=== PATIENT | female | born 1975 | race American Indian/Alaskan Native ===

== ENCOUNTER 2018-06-18 23:15 | Emergency (ER) | payer MEDICAID ==
[2018-06-18 23:28] VITALS: BP 149/76
[2018-06-19] MEDS ORDERED: NORCO 5/325 PO STA (02:10)
--- NOTE | 2018-06-19 02:12 | Emergency Department Report ---
ED ENT HPI - General Chief complaint: Sore Throat Stated complaint: SORE THROAT Time Seen by Provider: 06/19/18 01:57 Source: patient Mode of arrival: Ambulatory Limitations: No Limitations - History of Present Illness MD complaint: sore throat (reports a 3 month history of waxing and waning left tonsillar lymphadenopathy which showed minimal minimal response to a course of still reports 2 and anti-biotics. Reports pain to the lymph node region. Denies fevers, chills, sweats, dysphagia, weight loss, hemoptysis, hematemesis. Pain is not associated with meals, but appears to be worse at the time of sleep. There is tenderness with palpation presents to the emergency department for pain control. Does have a plan to follow up with primary care and other recommended specialist later this week) Location: throat Severity: moderate Quality: dull Improves with: none Worsens with: position, movement - Related Data Previous Rx's Medication Instructions Recorded Last Taken Type Ketorolac [Toradol] 10 mg PO Q6H PRN #14 tablet 06/19/18 Unknown Rx traMADol [Ultram] 50 mg PO Q6HR PRN #14 tablet 06/19/18 Unknown Rx Allergies Allergy/AdvReac Type Severity Reaction Status Date / Time Sulfa (Sulfonamide Allergy Unknown Verified 06/18/18 23:29 Antibiotics) codeine AdvReac Vomiting Verified 08/26/15 09:11 ED Dental HPI - General Chief complaint: Sore Throat Stated complaint: SORE THROAT Time Seen by Provider: 06/19/18 01:57 Source: patient Mode of arrival: Ambulatory Limitations: No Limitations - Related Data Previous Rx's Medication Instructions Recorded Last Taken Type Ketorolac [Toradol] 10 mg PO Q6H PRN #14 tablet 06/19/18 Unknown Rx traMADol [Ultram] 50 mg PO Q6HR PRN #14 tablet 06/19/18 Unknown Rx Allergies Allergy/AdvReac Type Severity Reaction Status Date / Time Sulfa (Sulfonamide Allergy Unknown Verified 06/18/18 23:29 Antibiotics) codeine AdvReac Vomiting Verified 08/26/15 09:11 ED Review of Systems ROS: Stated complaint: SORE THROAT Other details as noted in HPI Constitutional: denies: chills, fever Eyes: denies: eye pain, eye discharge, vision change ENT: throat pain. denies: ear pain Respiratory: denies: cough, shortness of breath, wheezing Cardiovascular: denies: chest pain, palpitations Endocrine: no symptoms reported Gastrointestinal: denies: abdominal pain, nausea, diarrhea Genitourinary: denies: urgency, dysuria, discharge Musculoskeletal: denies: back pain, joint swelling, arthralgia Skin: denies: rash, lesions Neurological: denies: headache, weakness, paresthesias Psychiatric: denies: anxiety, depression Hematological/Lymphatic: denies: easy bleeding, easy bruising ED Past Medical Hx - Past Medical History Previous Medical History?: Yes Additional medical history: HEART MURMUR - Surgical History Past Surgical History?: Yes Additional Surgical History: LEFT KNEE SURGERY - Social History Smoking Status: Current Some Day Smoker Substance Use Type: None - Medications Home Medications: Home Medications Medication Instructions Recorded Confirmed Last Taken Type Ketorolac [Toradol] 10 mg PO Q6H PRN #14 tablet 06/19/18 Unknown Rx traMADol [Ultram] 50 mg PO Q6HR PRN #14 tablet 06/19/18 Unknown Rx ED Physical Exam - General Limitations: No Limitations General appearance: alert, in no apparent distress - Head Head exam: Present: atraumatic, normocephalic - Eye Eye exam: Present: normal appearance Pupils: Present: normal accommodation - ENT ENT exam: Present: mucous membranes moist, other (normal Flushing's and Stensen' s duct. Pharynx is clear. No exudate. No sign of Quinsy. ) - Neck Neck exam: Present: normal inspection, lymphadenopathy (left tonsillar lymphadenopathy tenderness with palpation.) - Respiratory Respiratory exam: Present: normal lung sounds bilaterally. Absent: respiratory distress - Cardiovascular Cardiovascular Exam: Present: regular rate, normal rhythm. Absent: systolic murmur, diastolic murmur, rubs, gallop - GI/Abdominal GI/Abdominal exam: Present: soft, normal bowel sounds - Extremities Exam Extremities exam: Present: normal inspection - Back Exam Back exam: Present: normal inspection. Absent: CVA tenderness (L), muscle spasm , paraspinal tenderness - Neurological Exam Neurological exam: Present: alert, oriented X3, CN II-XII intact. Absent: normal gait - Psychiatric Psychiatric exam: Present: normal affect, normal mood - Skin Skin exam: Present: warm, dry, intact, normal color. Absent: rash ED Course Vital Signs 06/18/18 23:25 Temperature 99.3 F Pulse Rate 77 Respiratory 18 Rate Blood Pressure 149/76 O2 Sat by Pulse 96 Oximetry Critical care attestation.: If time is entered above; I have spent that time in minutes in the direct care of this critically ill patient, excluding procedure time. ED Disposition Clinical Impression: LAD (lymphadenopathy) of left cervical region Disposition: DC-01 TO HOME OR SELFCARE Is pt being admited?: No Does the pt Need Aspirin: No Condition: Stable Instructions: Lymphadenopathy (ED) Prescriptions: Ketorolac [Toradol] 10 mg PO Q6H PRN #14 tablet PRN Reason: Pain traMADol [Ultram] 50 mg PO Q6HR PRN #14 tablet PRN Reason: Pain Referrals: PRIMARY CARE, [Primary Care Provider] - 3-5 Days
== END 2018-06-19 03:05 | disposition home or self-care (01) ==
LOC: ED 23:15
DX: R59.9 Enlarged lymph nodes, unspecified (principal); F17.200 Nicotine dependence, unspecified, uncomplicated; Z88.2 Allergy status to sulfonamides; Z88.5 Allergy status to narcotic agent
CPT/HCPCS: 99282

== ENCOUNTER 2018-09-13 07:16 | Day surgery (SDC) | payer MEDICAID ==
--- NOTE | 2018-09-13 08:47 | Cat Scan Report ---
CT NECK WITH AND WITHOUT CONTRAST: HISTORY: Neck mass, K11.20. TECHNIQUE: Helical CT before and after following IV contrast. Sagittal and coronal reformatted images. FINDINGS: The parotid and submandibular glands are normal. The carotid sheaths are intact. There is no evidence of adenopathy within the neck. The thyroid gland is normal. The glottic structures are normal. The airway is patent. Strap musculature is unremarkable. Hyoid bone and thyroid cartilage are intact. IMPRESSION: Unremarkable CT neck. No suspicious neck mass or lymph node is detected for CT-guided or ultrasound-guided biopsy.
== END 2018-09-13 07:17 | disposition home or self-care (01) ==
LOC: CATHLABREC 07:16 → EDSTATUS 08:30
PROVIDERS: ATTEND Otolaryngology
DX: K11.20 Sialoadenitis, unspecified (principal); Z88.2 Allergy status to sulfonamides; Z88.5 Allergy status to narcotic agent; Z79.899 Other long term (current) drug therapy
CPT/HCPCS: 70492; Q9967

== ENCOUNTER 2019-04-13 03:57 | Emergency (ER) | payer MEDICAID ==
[2019-04-13] MEDS ORDERED: IBUPROFEN PO ONE (04:24)
[2019-04-13 04:47] LABS: HCG Qualitative,Urine Negative (Negative)
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
--- NOTE | 2019-04-13 05:23 | Cat Scan Report ---
CT of the facial bones INDICATION: Mandibular trauma tonight FINDINGS: The frontal, ethmoid, sphenoid and maxillary sinuses are all clear with no fractures or air -fluid levels identified in these areas. Zygomatic arches are intact as well as are the orbital floor s and allen. Artifact is seen from dental fillings but there is no definite fracture of the mandible or alveolar ridge. No hematoma or significant soft tissue swelling. Nasal bone is intact. No abnormal ity seen. IMPRESSION: Negative facial bone CT. No mandibular fractures seen. All CT scans at this location are performed using CT dose reduction for ALARA by means of automated e xposure control Signer Name: Anant Harris MD Signed: 04/13/2019 5:18 AM Workstation Name: [id number]
[2019-04-13 06:06] VITALS: BP 154/88
== END 2019-04-13 05:50 | disposition home or self-care (01) ==
LOC: ED 03:57
DX: S00.83XA Contusion of other part of head, initial encounter (principal); F17.200 Nicotine dependence, unspecified, uncomplicated; F12.10 Cannabis abuse, uncomplicated; Z98.890 Other specified postprocedural states; Z79.899 Other long term (current) drug therapy; Z88.2 Allergy status to sulfonamides; Z88.5 Allergy status to narcotic agent; Y04.8XXA Assault by other bodily force, initial encounter; Y93.89 Activity, other specified; Y92.29 Other specified public building as the place of occurrence of the external cause; Y99.8 Other external cause status
CPT/HCPCS: 70486; 81025; 99284

== ENCOUNTER 2019-08-22 18:21 | Emergency (ER) | payer MEDICAID ==
[2019-08-22 19:12] LABS: Bacteria,Urine 1+ /HPF (Negative); Bilirubin,Urine NEG (Negative); Blood,Urine SM (Negative); Color,Urine Amber (Yellow); Mucus,Urine FEW /HPF
--- NOTE | 2019-08-22 21:05 | Emergency Department Report ---
ED Female HPI - General Chief complaint: Urogenital-Female Stated complaint: UTI Time Seen by Provider: 08/22/19 21:00 Source: patient Mode of arrival: Ambulatory Limitations: No Limitations - History of Present Illness Initial comments: 43 y/o female come in for dysuria and UTI symptoms times 1 week. No fever or chill. Complaint: dysuria Onset/Timin -: week(s) Severity: severe Quality: sharp, burning, stabbing Consistency: constant Worsens with: urination - Related Data Previous Rx's Medication Instructions Recorded Last Taken Type Ketorolac [Toradol] 10 mg PO Q6H PRN #14 tablet 06/19/18 Unknown Rx traMADoL [Ultram] 50 mg PO Q6HR PRN #14 tablet 06/19/18 Unknown Rx Cyclobenzaprine [Flexeril] 10 mg PO TID PRN #15 tablet 04/13/19 Unknown Rx Ibuprofen [Motrin] 800 mg PO Q8HR PRN #20 tablet 04/13/19 Unknown Rx Nitrofurantoin Luce/M-Cryst 100 mg PO Q12HR 10 Days #20 capsule 08/22/19 Unknown Rx [Macrobid CAP] Phenazopyridine [Pyridium] 100 mg PO TID #6 tab 08/22/19 Unknown Rx Allergies Allergy/AdvReac Type Severity Reaction Status Date / Time Sulfa (Sulfonamide Allergy Unknown Verified 08/22/19 18:32 Antibiotics) codeine AdvReac Vomiting Verified 08/22/19 18:32 ED Review of Systems ROS: Stated complaint: UTI Other details as noted in HPI Comment: All other systems reviewed and negative ED Past Medical Hx - Past Medical History Additional medical history: HEART MURMUR - Surgical History Additional Surgical History: LEFT KNEE SURGERY - Social History Smoking Status: Current Every Day Smoker Substance Use Type: Alcohol, Marijuana - Medications Home Medications: Home Medications Medication Instructions Recorded Confirmed Last Taken Type Ketorolac [Toradol] 10 mg PO Q6H PRN #14 tablet 06/19/18 Unknown Rx traMADoL [Ultram] 50 mg PO Q6HR PRN #14 tablet 06/19/18 Unknown Rx Cyclobenzaprine [Flexeril] 10 mg PO TID PRN #15 tablet 04/13/19 Unknown Rx Ibuprofen [Motrin] 800 mg PO Q8HR PRN #20 tablet 08/03/19 Unknown Rx Nitrofurantoin Luce/M-Cryst 100 mg PO Q12HR 10 Days #20 capsule 08/22/19 Unknown Rx [Macrobid CAP] Phenazopyridine [Pyridium] 100 mg PO TID #6 tab 08/22/19 Unknown Rx ED Physical Exam - General Limitations: No Limitations General appearance: alert, in no apparent distress - Head Head exam: Present: atraumatic, normocephalic - Eye Eye exam: Present: normal appearance - ENT ENT exam: Present: mucous membranes moist - Cardiovascular Cardiovascular Exam: Present: regular rate, normal rhythm. Absent: systolic murmur, diastolic murmur, rubs, gallop - Neurological Exam Neurological exam: Present: alert, oriented X3, normal gait - Psychiatric Psychiatric exam: Present: normal affect, normal mood - Skin Skin exam: Present: warm, dry, intact, normal color. Absent: rash ED Medical Decision Making - Medical Decision Making 43 y/o female come in for dysuria and UTI symptoms times 1 week. No fever or chill. Will treat for UTI. Macrobid 100mg bid times 10 days and pyridium 100 mg tid prn Critical care attestation.: If time is entered above; I have spent that time in minutes in the direct care of this critically ill patient, excluding procedure time. ED Disposition Clinical Impression: UTI (urinary tract infection) Disposition: - TO HOME OR SELFCARE Is pt being admited?: No Does the pt Need Aspirin: No Condition: Stable Instructions: Dysuria (ED), Urinary Tract Infection in Women (ED) Prescriptions: Nitrofurantoin Luce/M-Cryst [Macrobid CAP] 100 mg PO Q12HR 10 Days #20 capsule Phenazopyridine [Pyridium] 100 mg PO TID #6 tab Referrals: [facility] [Provider Group] - 3-5 Days
[2019-08-22 21:36] VITALS: BP 142/78
== END 2019-08-22 21:36 | disposition home or self-care (01) ==
LOC: ED 18:21
DX: N39.0 Urinary tract infection, site not specified (principal); F17.200 Nicotine dependence, unspecified, uncomplicated; F12.10 Cannabis abuse, uncomplicated; Z79.899 Other long term (current) drug therapy; Z88.2 Allergy status to sulfonamides; Z88.5 Allergy status to narcotic agent
CPT/HCPCS: 81001

== ENCOUNTER 2020-06-18 14:50 | Emergency (ER) | payer MEDICAID ==
--- NOTE | 2020-06-18 14:59 | Emergency Department Report ---
Blank Doc - Documentation Documentation: 44-year-old female that presents right leg lac. This initial assessment/diagnostic orders/clinical plan/treatment(s) is/are subject to change based on patient's health status, clinical progression and re- assessment by fellow clinical providers in the ED. Further treatment and workup at subsequent clinical providers discretion. Patient/guardians urged not to elope from the ED as their condition may be serious if not clinically assessed and managed. Initial orders include: 1- Patient sent to [facility] for further evaluation and treatment 2- lac to be performing
[2020-06-18] MEDS ORDERED: LIDOCAINE-MPF (1%) 10 MG/1 ML VIAL 5 ML INFILTRATI ONE (15:38)
--- NOTE | 2020-06-18 15:39 | Emergency Department Report ---
- General Chief Complaint: Wound/Laceration Stated Complaint: LEG INJURY Time Seen by Provider: 06/18/20 14:58 Source: patient Mode of arrival: Ambulatory Limitations: No Limitations - History of Present Illness Initial Comments: Patient is a 44-year-old female presents emergency room with complaints of a laceration to the left anterior de la cruz that occurred just prior to arrival. Patient states that she accidentally dropped a glass jar for spaghetti sauce on the ground. She states that it shattered to the ground and on its way down it cut her leg. She denies any sensation of glass being stuck in the leg. She denies the glass being impaled into the leg.she states that it just sliced on the way down. She is ambulatory without difficulty. She denies any pain in the leg just pain where the laceration is. She states that it was pulsating bright red blood. She states her tetanus has been within the last 5 years. She denies any numbness or weakness. She denies any past medical history. She has an allergy to sulfa and codeine. - Related Data Previous Rx's Medication Instructions Recorded Last Taken Type Ketorolac [Toradol] 10 mg PO Q6H PRN #14 tablet 06/19/18 Unknown Rx traMADoL [Ultram] 50 mg PO Q6HR PRN #14 tablet 06/19/18 Unknown Rx Cyclobenzaprine [Flexeril] 10 mg PO TID PRN #15 tablet 04/13/19 Unknown Rx Ibuprofen [Motrin] 800 mg PO Q8HR PRN #20 tablet 04/13/19 Unknown Rx Nitrofurantoin [place]/M-Cryst 100 mg PO Q12HR 10 Days #20 capsule 08/22/19 Unknown Rx [Macrobid CAP] Phenazopyridine [Pyridium] 100 mg PO TID #6 tab 08/22/19 Unknown Rx Allergies Allergy/AdvReac Type Severity Reaction Status Date / Time Sulfa (Sulfonamide Allergy Unknown Verified 08/22/19 18:32 Antibiotics) codeine AdvReac Vomiting Verified 08/22/19 18:32 ED Review of Systems ROS: Stated complaint: LEG INJURY Other details as noted in HPI Comment: All other systems reviewed and negative ED Past Medical Hx - Past Medical History Previous Medical History?: Yes Hx Hypertension: Yes Additional medical history: HEART MURMUR - Surgical History Past Surgical History?: Yes Additional Surgical History: LEFT KNEE SURGERY - Social History Smoking Status: Current Every Day Smoker Substance Use Type: Alcohol, Marijuana - Medications Home Medications: Home Medications Medication Instructions Recorded Confirmed Last Taken Type Ketorolac [Toradol] 10 mg PO Q6H PRN #14 tablet 06/19/18 Unknown Rx traMADoL [Ultram] 50 mg PO Q6HR PRN #14 tablet 06/19/18 Unknown Rx Cyclobenzaprine [Flexeril] 10 mg PO TID PRN #15 tablet 04/13/19 Unknown Rx Ibuprofen [Motrin] 800 mg PO Q8HR PRN #20 tablet 04/13/19 Unknown Rx Nitrofurantoin [place]/M-Cryst 100 mg PO Q12HR 10 Days #20 capsule 08/22/19 Unknown Rx [Macrobid CAP] Phenazopyridine [Pyridium] 100 mg PO TID #6 tab 08/22/19 Unknown Rx ED Physical Exam - General Limitations: No Limitations General appearance: alert, in no apparent distress - Head Head exam: Present: atraumatic, normocephalic - Eye Eye exam: Present: normal appearance - ENT ENT exam: Present: mucous membranes moist - Respiratory Respiratory exam: Absent: respiratory distress, accessory muscle use - Neurological Exam Neurological exam: Present: alert, oriented X3 - Psychiatric Psychiatric exam: Present: normal affect, normal mood - Skin Skin exam: Present: warm, dry, other (1 cm laceration present to the left anterior de la cruz, there is a very small pulsating arterial bleed, no bony ttp of the LLE, FROM of the LLE, neurovascularly intact, no foreign body, no muscle/tendon involvement) ED Course Vital Signs 06/18/20 06/18/20 06/18/20 15:03 17:13 17:15 Temperature 99.3 F Pulse Rate 98 H 88 88 Respiratory 18 18 16 Rate Blood Pressure 241/120 170/86 170/86 [Right] O2 Sat by Pulse 100 100 100 Oximetry - Laceration /Wound Repair Left Anterior Leg Wound Location: lower extremity (left anterior de la cruz) Wound Length (cm): 1 Wound's Depth, Shape: linear Wound Explored: clean Irrigated w/ Saline (ccs): 200 Betadine Prep?: Yes Anesthesia: 1% Lidocaine Volume Anesthetic (ccs): 4 Wound Debrided: moderate Wound Repaired With: sutures Suture Size/Type: 4:0, proline Number of Sutures: 3 Layer Closure?: No Sterile Dressing Applied?: Yes Progress: Wound irrigated with saline and scrubbed with Betadine, 4 cc of 1% lidocaine without epinephrine used as anesthetic, no foreign body, no muscle/tendon involvement, Betadine prep again, sterile drapes applied, 4-0 Prolene used for skin closure, 3 U stitches placed, small arterial bleeding has completely resolved, patient tolerated well, no complications, bleeding controlled, sterile dressing applied ED Medical Decision Making - Lab Data Vital Signs 06/18/20 06/18/20 06/18/20 15:03 17:13 17:15 Temperature 99.3 F Pulse Rate 98 H 88 88 Respiratory 18 18 16 Rate Blood Pressure 241/120 170/86 170/86 [Right] O2 Sat by Pulse 100 100 100 Oximetry - Medical Decision Making Patient is a 44-year-old female presents emergency room with complaints of a laceration to the left anterior de la cruz that occurred just prior to arrival. Patient states that she accidentally dropped a glass jar for spaghetti sauce on the ground. She states that it shattered to the ground and on its way down it cut her leg. She denies any sensation of glass being stuck in the leg. She denies the glass being impaled into the leg.she states that it just sliced on the way down. She is ambulatory without difficulty. She denies any pain in the leg just pain where the laceration is. She states that it was pulsating bright red blood. She states her tetanus has been within the last 5 years. She denies any numbness or weakness. She denies any past medical history. She has an allergy to sulfa and codeine. Initial triage vitals with elevated blood pressure which improved upon repeat, will have patient follow-up with primary care physician. on exam: 1 cm laceration present to the left anterior de la cruz, there is a very small pulsating arterial bleed, no bony ttp of the LLE, FROM of the LLE, neurovascularly intact, no foreign body, no muscle/tendon involvement. Laceration repaired per procedure note, bleeding controlled. advised pt Please keep current dressing on for 2 hours and then may remove and put light dressing. Please keep area clean, dry, covered. May wash with soap and water and pat dry. No hot tub, no pool, no soaking in water. Showering is fine. Sutures will need to be removed within 10-14 days. Follow-up with a primary care doctor for reexamination. Return to emergency room immediately for any new or worsening symptoms. Critical care attestation.: If time is entered above; I have spent that time in minutes in the direct care of this critically ill patient, excluding procedure time. ED Disposition Clinical Impression: Arterial hemorrhage Laceration of left leg Qualifiers: Encounter type: initial encounter Qualified Code(s): S81.812A - Laceration without foreign body, left lower leg, initial encounter Disposition: DC- TO HOME OR SELFCARE Is pt being admited?: No Does the pt Need Aspirin: No Condition: Stable Instructions: Suture Care (ED), Laceration (ED) Additional Instructions: Please keep current dressing on for 2 hours and then may remove and put light dressing. Please keep area clean, dry, covered. May wash with soap and water and pat dry. No hot tub, no pool, no soaking in water. Showering is fine. Sutures will need to be removed within 10-14 days. Follow-up with a primary care doctor for reexamination. Return to emergency room immediately for any new or worsening symptoms. Referrals: your, primary care doctor [Other] - 2-3 Days Time of Disposition: 15:41 Print Language: CZECH
[2020-06-18 17:14] VITALS: BP 170/86
== END 2020-06-18 17:15 | disposition home or self-care (01) ==
LOC: ED 14:50
DX: S81.812A Laceration without foreign body, left lower leg, initial encounter (principal); I10 Essential (primary) hypertension; F17.200 Nicotine dependence, unspecified, uncomplicated; F12.10 Cannabis abuse, uncomplicated; Z98.890 Other specified postprocedural states; Z79.1 Long term (current) use of non-steroidal anti-inflammatories (NSAID); Z79.899 Other long term (current) drug therapy; Z88.2 Allergy status to sulfonamides; Z88.8 Allergy status to other drugs, medicaments and biological substances; W26.9XXA Contact with unspecified sharp object(s), initial encounter; Y93.89 Activity, other specified; Y92.89 Other specified places as the place of occurrence of the external cause; Y99.8 Other external cause status
CPT/HCPCS: 99282

== ENCOUNTER 2021-08-12 23:49 | Emergency (ER) | payer MEDICAID ==
[2021-08-12 23:55] VITALS: BP 175/108
[2021-08-12] MEDS ORDERED: methylPREDNISolone Sod Succinate 125 MG/2 ML INJ IM ONE (23:59)
[2021-08-12] MEDS ORDERED: diphenhydrAMINE 25 MG CAP PO ONE (23:59)
[2021-08-12] MEDS ORDERED: FAMOTIDINE 20 MG TAB PO ONE (23:59)
--- NOTE | 2021-08-13 02:10 | Emergency Department Report ---
ED Allergic Reaction HPI - General Chief complaint: Allergic Reaction Stated complaint: ALLERGIC REACTION Source: patient Mode of arrival: Ambulatory Limitations: No Limitations - History of Present Illness Initial Comments: Patient is a 45-year-old -[place] female with a history of hypertension who presents to the ED with acute onset persistent sore throat, dysphagia and itchy bilateral hands with dry scaly rashes for the last 12 hours. Patient states that her symptoms have worsened in the last 6 hours. 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 Patient denies swollen lips or tongue, swollen throat, swollen face, dysphagia, dysphonia, hoarseness, chest pain or shortness of breath, cough, wheezing, nausea and vomiting or diar horace and abdominal pain, fever and chills. MD Complaint: allergic reaction, other (Sore throat; bilateral hand itching and swelling) -: Sudden, hour(s) (12) Exposure: unknown Symptoms: rash, itching. denies: facial swelling, lip swelling, difficulty swallowing, difficulty breathing, orolingual swelling, hoarseness, syncopy, dizziness, nausea, vomiting, other, abdominal pain Severity: moderate Treatment Prior to Arrival: none Previous Allergy History: none - Related Data Previous Rx's Medication Instructions Recorded Last Taken Type Ketorolac [Toradol] 10 mg PO Q6H PRN #14 tablet 06/19/18 Unknown Rx traMADoL [Ultram] 50 mg PO Q6HR PRN #14 tablet 06/19/18 Unknown Rx Cyclobenzaprine [Flexeril] 10 mg PO TID PRN #15 tablet 04/13/19 Unknown Rx Ibuprofen [Motrin] 800 mg PO Q8HR PRN #20 tablet 04/13/19 Unknown Rx Nitrofurantoin [place]/M-Cryst 100 mg PO Q12HR 10 Days #20 capsule 08/22/19 Unknown Rx [Macrobid CAP] Phenazopyridine [Pyridium] 100 mg PO TID #6 tab 08/22/19 Unknown Rx Azithromycin [Zithromax Z-MEE] 250 mg PO DAILY #6 tablet 08/13/21 Unknown Rx Famotidine [Pepcid] 20 mg PO BID #30 tablet 08/13/21 Unknown Rx Ibuprofen [Motrin] 800 mg PO Q8HR PRN #30 tablet 08/13/21 Unknown Rx diphenhydrAMINE [Benadryl CAP] 25 mg PO Q6HR PRN #30 capsule 08/13/21 Unknown Rx predniSONE [Deltasone] 60 mg PO QDAY #15 tab 08/13/21 Unknown Rx Allergies Allergy/AdvReac Type Severity Reaction Status Date / Time Sulfa (Sulfonamide Allergy Unknown Verified 08/22/19 18:32 Antibiotics) codeine AdvReac Vomiting Verified 08/22/19 18:32 ED Review of Systems ROS: Stated complaint: ALLERGIC REACTION Other details as noted in HPI Constitutional: denies: chills, fever Eyes: denies: eye pain, eye discharge, vision change ENT: throat pain, other (Facial itching). denies: ear pain Respiratory: denies: cough, shortness of breath, wheezing Cardiovascular: denies: chest pain, palpitations Endocrine: no symptoms reported Gastrointestinal: denies: abdominal pain, nausea, vomiting, diarrhea Genitourinary: denies: urgency, dysuria, discharge Musculoskeletal: denies: back pain, joint swelling, arthralgia Skin: denies: rash, lesions Neurological: denies: headache, weakness, paresthesias Psychiatric: denies: anxiety, depression Hematological/Lymphatic: denies: easy bleeding, easy bruising ED Past Medical Hx - Past Medical History Hx Hypertension: Yes Additional medical history: HEART MURMUR - Surgical History Additional Surgical History: LEFT KNEE SURGERY - Social History Smoking Status: Current Every Day Smoker Substance Use Type: Alcohol, Marijuana - Medications Home Medications: Home Medications Medication Instructions Recorded Confirmed Last Taken Type Ketorolac [Toradol] 10 mg PO Q6H PRN #14 tablet 06/19/18 Unknown Rx traMADoL [Ultram] 50 mg PO Q6HR PRN #14 tablet 06/19/18 Unknown Rx Cyclobenzaprine [Flexeril] 10 mg PO TID PRN #15 tablet 04/13/19 Unknown Rx Ibuprofen [Motrin] 800 mg PO Q8HR PRN #20 tablet 04/13/19 Unknown Rx Nitrofurantoin [place]/M-Cryst 100 mg PO Q12HR 10 Days #20 capsule 08/22/19 Unknown Rx [Macrobid CAP] Phenazopyridine [Pyridium] 100 mg PO TID #6 tab 08/22/19 Unknown Rx Azithromycin [Zithromax Z-MEE] 250 mg PO DAILY #6 tablet 08/13/21 Unknown Rx Famotidine [Pepcid] 20 mg PO BID #30 tablet 08/13/21 Unknown Rx Ibuprofen [Motrin] 800 mg PO Q8HR PRN #30 tablet 08/13/21 Unknown Rx diphenhydrAMINE [Benadryl CAP] 25 mg PO Q6HR PRN #30 capsule 08/13/21 Unknown Rx predniSONE [Deltasone] 60 mg PO QDAY #15 tab 08/13/21 Unknown Rx ED Physical Exam - General Limitations: No Limitations General appearance: alert, in no apparent distress - Head Head exam: Present: atraumatic, normocephalic, normal inspection - Eye Eye exam: Present: normal appearance, PERRL, EOMI Pupils: Present: normal accommodation - ENT ENT exam: Present: mucous membranes moist, TM's normal bilaterally, normal external ear exam, other (Mild erythematous oropharynx) - Neck Neck exam: Present: normal inspection, full ROM, lymphadenopathy. Absent: tenderness - Respiratory Respiratory exam: Present: normal lung sounds bilaterally. Absent: respiratory distress, wheezes, rales, rhonchi, chest wall tenderness, accessory muscle use, prolonged expiratory, other - Cardiovascular Cardiovascular Exam: Present: regular rate, normal rhythm, normal heart sounds. Absent: systolic murmur, diastolic murmur, rubs, gallop - GI/Abdominal GI/Abdominal exam: Present: soft, normal bowel sounds. Absent: tenderness, guarding, rigid, hyperactive bowel sounds, hypoactive bowel sounds, organomegaly, bruit - Extremities Exam Extremities exam: Present: normal inspection, full ROM, normal capillary refill. Absent: tenderness - Back Exam Back exam: Present: normal inspection, full ROM. Absent: tenderness, CVA tenderness (R), CVA tenderness (L) - Neurological Exam Neurological exam: Present: alert, oriented X3, CN II-XII intact, normal gait, reflexes normal - Psychiatric Psychiatric exam: Present: normal affect, normal mood - Skin Skin exam: Present: warm, dry, intact, normal color. Absent: rash ED Course Vital Signs 08/12/21 23:53 Temperature 98.4 F Pulse Rate 87 Respiratory 18 Rate Blood Pressure 175/108 O2 Sat by Pulse 100 Oximetry ED Medical Decision Making - Medical Decision Making This is a 45-year-old -[place] female with a history of hypertension who presents to the ED with acute onset persistent sore throat, dysphagia and itchy bilateral hands with dry scaly rashes for the last 12 hours. Patient states that her symptoms have worsened in the last 6 hours. 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 In the ED, patient is alert and oriented x3 and is not in any distress. Patient was treated for acute allergic reaction with Solu-Medrol, Pepcid, Benadryl and based on the history and physical exam findings, the patient was discharged home on medications and advised to follow-up with her primary care physician in 3 to 5 days for reevaluation or return to the ED immediately if symptoms get worse. - Differential Diagnosis Acute allergic reaction; lymphadenopathy; pharyngitis; irritant dermatitis Critical care attestation.: If time is entered above; I have spent that time in minutes in the direct care of this critically ill patient, excluding procedure time. ED Disposition Clinical Impression: Irritant dermatitis, Acute urticaria Acute allergic reaction Qualifiers: Encounter type: initial encounter Qualified Code(s): T78.40XA - Allergy, unspecified, initial encounter Acute pharyngitis Qualifiers: Pharyngitis/tonsillitis etiology: unspecified etiology Qualified Code(s): J02.9 - Acute pharyngitis, unspecified Disposition: 01 HOME / SELF CARE / HOMELESS Is pt being admited?: No Does the pt Need Aspirin: No Condition: Stable Instructions: Allergies, Adult, [id number], Contact Dermatitis, [id number], Pharyngitis, [id number], Hives, [id number] Additional Instructions: Take medication with food, drink plenty of fluids and follow-up with your primary care physician in 7 to 10 days for reevaluation. Return to the ED immediately if symptoms get worse. Prescriptions: diphenhydrAMINE [Benadryl CAP] 25 mg PO Q6HR PRN #30 capsule PRN Reason: Itching and swelling predniSONE [Deltasone] 60 mg PO QDAY #15 tab Ibuprofen [Motrin] 800 mg PO Q8HR PRN #30 tablet PRN Reason: Pain , Severe (7-10) Famotidine [Pepcid] 20 mg PO BID #30 tablet Azithromycin [Zithromax Z-MEE] 250 mg PO DAILY #6 tablet Referrals: JOANN SHAHID MD [Primary Care Provider] - 3-5 Days Forms: Work/School Release Form(ED) Time of Disposition: 02:08 Print Language: DIVEHI
== END 2021-08-13 02:30 | disposition home or self-care (01) ==
LOC: ED 23:49
DX: L30.8 Other specified dermatitis (principal); L50.9 Urticaria, unspecified; J02.9 Acute pharyngitis, unspecified; T78.40XA Allergy, unspecified, initial encounter; F17.200 Nicotine dependence, unspecified, uncomplicated; F10.20 Alcohol dependence, uncomplicated; Z88.2 Allergy status to sulfonamides; F12.90 Cannabis use, unspecified, uncomplicated; Z88.5 Allergy status to narcotic agent; X58.XXXA Exposure to other specified factors, initial encounter
CPT/HCPCS: 96372; 99282; J2930